=== PATIENT | female | born 1960 | race Caucasian/White ===

== ENCOUNTER 2017-01-11 21:05 | Emergency (ER) | payer OTHER ==
[~2017-01-11] VITALS: Ht 157.5 cm; Wt 50.0 kg
[~2017-01-11 21:05] MED LIST: FLUO20CA38 PO; SIMV10TA PO
[2017-01-11 21:26] VITALS: Ht 157.5 cm; Wt 50.0 kg
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
[2017-01-12] MEDS ORDERED: ACET325T33 PO
[2017-01-12] MEDS ORDERED: HYDR-906 PO (01:03)
[2017-01-12 01:06] VITALS: BP 160/97; PULSE 114; RESP 18
== END 2017-01-12 01:08 | disposition home or self-care (01) ==
LOC: FTE 21:05
DX: S19.9XXA Unspecified injury of neck, initial encounter (principal); S29.9XXA Unspecified injury of thorax, initial encounter; V49.40XA Driver injured in collision with unspecified motor vehicles in traffic accident, initial encounter; Z87.891 Personal history of nicotine dependence; Z95.0 Presence of cardiac pacemaker
CPT/HCPCS: 71020; 93005